=== PATIENT | male | born 1990 | race Caucasian/White ===

== ENCOUNTER 2016-06-12 21:54 | Emergency (ER) | payer OTHER ==
--- NOTE | 2016-06-12 22:26 | ED NURSING NOTES ---
Clinical Report - Nurses [facility] [address] [place] [address] 06/12/2016 21:56 Patient: AMY VASQUEZ TRIAGE Triage time 22:Jun 12 2016. Acuity: LEVEL 4. Chief Complaint: SKIN RASH. 22:03 06/12/16. SEPSIS SCREEN: Sepsis Screen. Negative (no infection suspected/documented). DIMA COMA SCORE: [place] Coma Scale: 15- eyes open spontaneously (4); best verbal response- oriented x 4 (5); best motor response- obeys commands (6). --22:10 Christal Pizano R.N. 22:03 06/12/16. BP: 124/73. HR: 74. RR: 18. O2 saturation: 100%. Temp: 98.2 F. Pain level now: 07/05. --22:10 Christal Pizano R.N. Weight: 65.7 kg stated. Height/Length: 66 inches Per Patient. BMI: 23.4. --22:02 Christal Pizano R.N. Medications None. --22:08 Christal Pizano R.N. Allergies No Known Drug Allergy. --22:09 Christal Pizano R.N. Medication/allergy information source: the patient. --22:10 Christal Pizano R.N. History Arrived by private vehicle. Historian: patient. Unaccompanied. Reported as (across top of chest and back). Onset. (2 months). It is described as itchy and painful. Treatment RECREATION FACILITY MANAGER: None. PAST MEDICAL HX: Immunizations: status is unknown. SOCIAL HX: Heavy tobacco smoker (cigarette)- 1 pack per day. History of drug use: heroin, marijuana. No infectious disease exposure. ABUSE ASSESSMENT: No report of abuse. SELF HARM ASSESSMENT: A self harm assessment was performed. The patient answered "no" to the question "Have you recently felt down, depressed, or hopeless?", "Have you noticed less interest or pleasure in doing things?", "Do you have thoughts of harming or killing yourself?", "Are you here because you tried to hurt yourself?", "Have you ever tried to hurt yourself before today?", "Have you recently had thoughts about harming or killing others?" and "Do you have any dangerous items in your possession?". NUTRITIONAL RISK ASSESSMENT: The nutritional risk assessment revealed no deficiencies. FUNCTIONAL ASSESSMENT: Functional assessment: no impairments noted. LEARNING NEEDS ASSESSMENT: The learning needs assessment revealed no barriers. SKIN INTEGRITY ASSESSMENT: Skin integrity risk assessment completed. No skin integrity risk identified. --22:10 Christal Pizano R.N. PROBLEMS: Substance Abuse. --22:09 Christal Pizano R.N. ADDITIONAL SURGERIES: no known surgeries. Interventions ID band on patient. --22:10 Christal Pizano R.N. PHYSICAL ASSESSMENT 22:11 06/12/16. GENERAL / NEURO / PSYCH: Alert. The patient does not appear to be in acute distress. HEENT: Pupils equal, round and reactive to light. RESPIRATORY: Respirations not labored. CVS: Pulses within normal limits. SKIN: Skin is warm and dry. Multiple skin lesions with erythema- upper chest and back. --22:11 Christal Pizano R.N. NURSING PROGRESS NOTES 22:11 06/12/16. Patient gowned. Patient ready for evaluation. --22:11 Christal Pizano R.N. 22:06/12/16. Two patient identifiers checked. Call light placed in reach. Side rails up x 1. Bed placed in lowest position. Brakes of bed on. --22:11 Christal Pizano R.N. DISPOSITION / DISCHARGE 22:39 06/12/16. Departure time: 2238. Condition at departure: unchanged and stable. No learning barriers present. Discharge instructions provided and reviewed with the patient. Reviewed medication(s) side effects, precautions, dosing and course information. Prescription(s) given to the patient. Work note given. Patient verbalized understanding. Written instructions provided in Greek. The patient was discharged by the physician assistant community director. He was discharged home and accompanied by sales activity manager. He left the Emergency Department ambulatory and via private vehicle. Catcher Filter Tip driving. --22:40 Jil Pradhan R.N. Locked/Released at 06/15/2016 4:05 by Christal Pizano R.N.
--- NOTE | 2016-06-12 22:26 | ED CLINICAL REPORT ---
Clinical Report - Physicians/Mid Levels [facility] [address] [place] [address] 06/12/2016 21:56 Patient: AMY VASQUEZ Time Seen: 22:38 Apr 2016. Arrived- By private vehicle. Historian- patient. HISTORY OF PRESENT ILLNESS Chief Complaint: SKIN RASH. This started just prior to arrival and is still present. It has been located on the trunk. (Patient reports a rash the chest over the last 2-3 months, history of similar. Reports has previously been in senior living. Reports possible history of MRSA. Denies any fevers. Denies pruritic nature. Has been putting benzoyl cream on it, and washings such.). REVIEW OF SYSTEMS No fever, difficulty breathing, abdominal pain or diarrhea. All systems otherwise negative, except as recorded above. PAST HISTORY Problems: Pharyngitis. Dental Abscess. Abdominal Pain. Substance Abuse. Chest Wall Pain. Anxiety Reaction. Leukocytosis. Panic Attack. Dental Pain. Dental Caries. Immunizations. Additional Surgeries: no known surgeries. Medications: None. Allergies: No Known Drug Allergy. SOCIAL HISTORY Smoker- current status unknown. History of drug use: heroin, marijuana. ADDITIONAL NOTES The nursing notes have been reviewed. PHYSICAL EXAM Vital Signs: 06/12/2016 22:03 BP: 124/73. HR: 74. RR: 18. O2 saturation: 100%. Temp: 98.2 F. Pain level now: 5/10. ENT: Ears normal. Nose normal. Neck: Neck supple. No lymphadenopathy. CVS: Normal heart rate and rhythm. Heart sounds normal. Respiratory: No respiratory distress. Breath sounds normal. Skin: No tender indurated area. No cellulitis. Rash present on the trunk. The rash is maculopapular. No lymphangitis, induration, rough texture like scarlatina, skin-line distribution like pityriasis rosea or tenderness. No swelling. PROGRESS AND PROCEDURES Course of Care: Patient with lesions over the chest and abdomen, into his neck, most consistent with folliculitis. Denies any recent amount of activity. Reports history of similar. Denies any fevers. Does not appear infectious, cellulitic in nature. Patient is stable. Patient/family counseled. Disposition: Discharged. CLINICAL IMPRESSION Superficial folliculitis INSTRUCTIONS Do not work today. Warnings: Further evaluation is necessary. Prescription Medications: Clindamycin 300 mg: take 1 capsule orally every 8 hours for 10 days. No refill. Bactroban 2% ointment: apply small amount to affected area twice daily for 1 week, until symptoms better. Dispense thirty (30) grams No refills. Substitution is permissible. Follow-up: Follow up with your doctor in four. (Electronically signed by Violet Jiang P.A.-C 06/12/2016 22:40)
--- NOTE | 2016-06-12 22:26 | ED CLINICAL REPORT ---
Clinical Report - Physicians/Mid Levels [facility] [address] [place] [address] 06/12/2016 21:56 Patient: AMY VASQUEZ Time Seen: 22:38 Apr 2016. Arrived- By private vehicle. Historian- patient. HISTORY OF PRESENT ILLNESS Chief Complaint: SKIN RASH. This started just prior to arrival and is still present. It has been located on the trunk. (Patient reports a rash the chest over the last 2-3 months, history of similar. Reports has previously been in half-way. Reports possible history of MRSA. Denies any fevers. Denies pruritic nature. Has been putting benzoyl cream on it, and washings such.). REVIEW OF SYSTEMS No fever, difficulty breathing, abdominal pain or diarrhea. All systems otherwise negative, except as recorded above. PAST HISTORY Problems: Pharyngitis. Dental Abscess. Abdominal Pain. Substance Abuse. Chest Wall Pain. Anxiety Reaction. Leukocytosis. Panic Attack. Dental Pain. Dental Caries. Immunizations. Additional Surgeries: no known surgeries. Medications: None. Allergies: No Known Drug Allergy. SOCIAL HISTORY Smoker- current status unknown. History of drug use: heroin, marijuana. ADDITIONAL NOTES The nursing notes have been reviewed. PHYSICAL EXAM Vital Signs: 06/12/2016 22:03 BP: 124/73. HR: 74. RR: 18. O2 saturation: 100%. Temp: 98.2 F. Pain level now: 5/10. ENT: Ears normal. Nose normal. Neck: Neck supple. No lymphadenopathy. CVS: Normal heart rate and rhythm. Heart sounds normal. Respiratory: No respiratory distress. Breath sounds normal. Skin: No tender indurated area. No cellulitis. Rash present on the trunk. The rash is maculopapular. No lymphangitis, induration, rough texture like scarlatina, skin-line distribution like pityriasis rosea or tenderness. No swelling. PROGRESS AND PROCEDURES Course of Care: Patient with lesions over the chest and abdomen, into his neck, most consistent with folliculitis. Denies any recent amount of activity. Reports history of similar. Denies any fevers. Does not appear infectious, cellulitic in nature. Patient is stable. Patient/family counseled. Disposition: Discharged. CLINICAL IMPRESSION Superficial folliculitis INSTRUCTIONS Do not work today. Warnings: Further evaluation is necessary. Prescription Medications: Clindamycin 300 mg: take 1 capsule orally every 8 hours for 10 days. No refill. Bactroban 2% ointment: apply small amount to affected area twice daily for 1 week, until symptoms better. Dispense thirty (30) grams No refills. Substitution is permissible. Follow-up: Follow up with your doctor in four. (Electronically signed by Violet Jiang P.A.-C 06/12/2016 22:40)
--- NOTE | 2016-06-12 22:26 | ED NURSING NOTES ---
Clinical Report - Nurses [facility] [address] [place] [address] 06/12/2016 21:56 Patient: AMY VASQUEZ TRIAGE Triage time 22:Jun 12 2016. Acuity: LEVEL 4. Chief Complaint: SKIN RASH. 22:03 06/12/16. SEPSIS SCREEN: Sepsis Screen. Negative (no infection suspected/documented). DIMA COMA SCORE: [place] Coma Scale: 15- eyes open spontaneously (4); best verbal response- oriented x 4 (5); best motor response- obeys commands (6). --22:10 Christal Pizano R.N. 22:03 06/12/16. BP: 124/73. HR: 74. RR: 18. O2 saturation: 100%. Temp: 98.2 F. Pain level now: 07/05. --22:10 Christal Pizano R.N. Weight: 65.7 kg stated. Height/Length: 66 inches Per Patient. BMI: 23.4. --22:02 Christal Pizano R.N. Medications None. --22:08 Christal Pizano R.N. Allergies No Known Drug Allergy. --22:09 Christal Pizano R.N. Medication/allergy information source: the patient. --22:10 Christal Pizano R.N. History Arrived by private vehicle. Historian: patient. Unaccompanied. Reported as (across top of chest and back). Onset. (2 months). It is described as itchy and painful. Treatment BITUMASTIC APPLIER: None. PAST MEDICAL HX: Immunizations: status is unknown. SOCIAL HX: Heavy tobacco smoker (cigarette)- 1 pack per day. History of drug use: heroin, marijuana. No infectious disease exposure. ABUSE ASSESSMENT: No report of abuse. SELF HARM ASSESSMENT: A self harm assessment was performed. The patient answered "no" to the question "Have you recently felt down, depressed, or hopeless?", "Have you noticed less interest or pleasure in doing things?", "Do you have thoughts of harming or killing yourself?", "Are you here because you tried to hurt yourself?", "Have you ever tried to hurt yourself before today?", "Have you recently had thoughts about harming or killing others?" and "Do you have any dangerous items in your possession?". NUTRITIONAL RISK ASSESSMENT: The nutritional risk assessment revealed no deficiencies. FUNCTIONAL ASSESSMENT: Functional assessment: no impairments noted. LEARNING NEEDS ASSESSMENT: The learning needs assessment revealed no barriers. SKIN INTEGRITY ASSESSMENT: Skin integrity risk assessment completed. No skin integrity risk identified. --22:10 Christal Pizano R.N. PROBLEMS: Substance Abuse. --22:09 Christal Pizano R.N. ADDITIONAL SURGERIES: no known surgeries. Interventions ID band on patient. --22:10 Christal Pizano R.N. PHYSICAL ASSESSMENT 22:11 06/12/16. GENERAL / NEURO / PSYCH: Alert. The patient does not appear to be in acute distress. HEENT: Pupils equal, round and reactive to light. RESPIRATORY: Respirations not labored. CVS: Pulses within normal limits. SKIN: Skin is warm and dry. Multiple skin lesions with erythema- upper chest and back. --22:11 Christal Pizano R.N. NURSING PROGRESS NOTES 22:11 06/12/16. Patient gowned. Patient ready for evaluation. --22:11 Christal Pizano R.N. 22:06/12/16. Two patient identifiers checked. Call light placed in reach. Side rails up x 1. Bed placed in lowest position. Brakes of bed on. --22:11 Christal Pizano R.N. DISPOSITION / DISCHARGE 22:39 06/12/16. Departure time: 2238. Condition at departure: unchanged and stable. No learning barriers present. Discharge instructions provided and reviewed with the patient. Reviewed medication(s) side effects, precautions, dosing and course information. Prescription(s) given to the patient. Work note given. Patient verbalized understanding. Written instructions provided in [place]. The patient was discharged by the physician program assistant. He was discharged home and accompanied by ios programmer. He left the Emergency Department ambulatory and via private vehicle. Gym Teacher driving. --22:40 Jil Pradhan R.N. Locked/Released at 06/15/2016 4:05 by Christal Pizano R.N.
--- NOTE | 2016-06-15 04:06 | ED MED RECONCILIATION SUMMARY ---
Patient: AMY VASQUEZ Medication Reconciliation Report [facility] VisitID: [id number] [address] [place] [address] 25y, M Registration Date/Time: 06/12/2016 Weight: 65.7 kg Height/Length: 66 in. BMI: 23.4 ALLERGIES: No Known Drug Allergy The patient's Home Medications are listed below: NONE. The source(s) of the original Home Medication information: patient The following Medications were given to the patient in the Emergency Department: None. The following Medications were prescribed to the patient: Clindamycin 300 mg: take 1 capsule orally every 8 hours for 10 days. No refill. -- Violet Jiang, P.A.-C Bactroban 2% ointment: apply small amount to affected area twice daily for 1 week, until symptoms better. Dispense thirty (30) grams No refills. Substitution is permissible. -- Violet Jiang, P.A.-C
--- NOTE | 2016-06-15 04:06 | ED DISCHARGE INSTRUCTIONS ---
Patient: AMY VASQUEZ General Instructions [facility] VisitID: [id number] [place] [address] 25y, M Registration Date/Time: 06/12/2016 Superficial folliculitis INSTRUCTIONS Do not work today. Warnings: Further evaluation is necessary. Prescription Medications: Clindamycin 300 mg: take 1 capsule orally every 8 hours for 10 days. No refill. Bactroban 2% ointment: apply small amount to affected area twice daily for 1 week, until symptoms better. Dispense thirty (30) grams No refills. Substitution is permissible. Follow-up: Follow up with your doctor in four. ADDITIONAL INFORMATION Folliculitis Folliculitis is an inflammation of the hair follicles (where the hair comes out of the skin). It is most often caused by infection with bacteria such as staph. Folliculitis usually looks like small white pimples in hairy areas of the skin. Severe cases may cause permanent hair loss and scarring. The condition is most often triggered by friction against the skin due to tight-fitting clothing. Ingrown hairs on the face of men are another cause. One type of folliculitis occurs after soaking in a hot tub when the water is contaminated with bacteria. Simple folliculitis usually clears by itself in a few days. Folliculitis that does not go away or comes back may need medical treatment. Oral and topical antibioticsmay beused. Home care The following will help you care for folliculitis at home: Wash the area with soap and water when you bathe, as usual. Unless another medicine was prescribed, you can apply a topical antibiotic cream twice a day. Follow-up care Follow up with your doctor as advised by our staff. When to seek medical care Get prompt medical attention if any of the following occur: Rash lasts longer than three days Rash changes appearance or spreads Abscess (boil) forms with local swelling, tenderness, or fluid drainage Fever of 100.4F (38C) or higher, or as directed by your health care provider Clindamycin Hydrochloride Oral capsule What is this medicine? CLINDAMYCIN (KLIN da MYE sin) is a lincosamide antibiotic. It is used to treat certain kinds of bacterial infections. It will not work for colds, flu, or other viral infections. How should I use this medicine? Take this medicine by mouth with a full glass of water. Follow the directions on the prescription label. You can take this medicine with food or on an empty stomach. If the medicine upsets your stomach, take it with food. Take your medicine at regular intervals. Do not take your medicine more often than directed. Take all of your medicine as directed even if you think your are better. Do not skip doses or stop your medicine early. Talk to your manager rental regarding the use of this medicine in children. Special care may be needed. What side effects may I notice from receiving this medicine? Side effects that you should report to your doctor or health career consultant as soon as possible: allergic reactions like skin rash, itching or hives, swelling of the face, lips, or tongue dark urine pain on swallowing redness, blistering, peeling or loosening of the skin, including inside the mouth unusual bleeding or bruising unusually weak or tired yellowing of eyes or skin Side effects that usually do not require medical attention (report to your doctor or health career consultant if they continue or are bothersome): diarrhea itching in the rectal or genital area joint pain nausea, vomiting stomach pain What may interact with this medicine? chloramphenicol erythromycin kaolin products What if I miss a dose? If you miss a dose, take it as soon as you can. If it is almost time for your next dose, take only that dose. Do not take double or extra doses. Where should I keep my medicine? Keep out of the reach of children. Store at room temperature between 20 and 25 degrees C (68 and 77 degrees F). Throw away any unused medicine after the expiration date. What should I tell my health care provider before I take this medicine? They need to know if you have any of these conditions: kidney disease liver disease stomach problems like colitis an unusual or allergic reaction to clindamycin, lincomycin, or other medicines, foods, dyes like tartrazine or preservatives or trying to get breast-feeding What should I watch for while using this medicine? Tell your doctor or healthcare professional if your symptoms do not start to get better or if they get worse. Do not treat diarrhea with over the counter products. Contact your doctor if you have diarrhea that lasts more than 2 days or if it is severe and watery. Mupirocin Topical ointment What is this medicine? MUPIROCIN (myoo PEER oh sin) is an antibiotic. It is used on the skin to treat skin infections. How should I use this medicine? This medicine is for external use only. Follow the directions on the prescription label. Wash your hands before and after use. Before applying, wash the affected area with mild soap and water and pat dry. Apply a small amount to the affected area and rub gently. You can cover the area with a gauze dressing. Do not get this medicine in your eyes. If you do, rinse out with plenty of cool tap water. Do not use your medicine more often than directed. Finish the full course of medicine prescribed by your doctor or health career consultant even if you think your condition is better. Do not use over large areas of burnt skin. Talk to your manager rental regarding the use of this medicine in children. Special care may be needed. What side effects may I notice from receiving this medicine? Side effects that you should report to your doctor or health career consultant as soon as possible: skin rash, redness, continued swelling, burning, itching, stinging, or pain Side effects that usually do not require medical attention (report to your doctor or health career consultant if they continue or are bothersome): dry skin, itching What may interact with this medicine? Interactions are not expected. Do not use any other skin products on the affected area without telling your doctor or health career consultant. What if I miss a dose? If you miss a dose, take it as soon as you can. If it is almost time for your next dose, take only that dose. Do not take double or extra doses. Where should I keep my medicine? Keep out of the reach of children. Store at room temperature between 20 and 25 degrees C (68 and 77 degrees F). Throw away any unused medicine after the expiration date. What should I tell my health care provider before I take this medicine? They need to know if you have any of these conditions: an unusual or allergic reaction to mupirocin, polyethylene glycol (PEG), or other topical antibiotic medicine or trying to get breast-feeding What should I watch for while using this medicine? Tell your doctor or health career consultant if your skin condition does not begin to improve within 3 to 5 days. You have been given the following additional information: Folliculitis Clindamycin Hydrochloride Oral capsule Mupirocin Topical ointment Do not work today. (Electronically signed by Violet Jiang P.A.-C 06/12/2016 22:40)
--- NOTE | 2016-06-15 04:06 | ED MED RECONCILIATION SUMMARY ---
Patient: AMY VASQUEZ Medication Reconciliation Report [facility] VisitID: [id number] [address] [place] [address] 25y, M Registration Date/Time: 06/12/2016 Weight: 65.7 kg Height/Length: 66 in. BMI: 23.4 ALLERGIES: No Known Drug Allergy The patient's Home Medications are listed below: NONE. The source(s) of the original Home Medication information: patient The following Medications were given to the patient in the Emergency Department: None. The following Medications were prescribed to the patient: Clindamycin 300 mg: take 1 capsule orally every 8 hours for 10 days. No refill. -- Violet Jiang, P.A.-C Bactroban 2% ointment: apply small amount to affected area twice daily for 1 week, until symptoms better. Dispense thirty (30) grams No refills. Substitution is permissible. -- Violet Jiang, P.A.-C
--- NOTE | 2016-06-15 04:06 | ED DISCHARGE INSTRUCTIONS ---
Patient: AMY VASQUEZ General Instructions [facility] VisitID: [id number] [place] [address] 25y, M Registration Date/Time: 06/12/2016 Superficial folliculitis INSTRUCTIONS Do not work today. Warnings: Further evaluation is necessary. Prescription Medications: Clindamycin 300 mg: take 1 capsule orally every 8 hours for 10 days. No refill. Bactroban 2% ointment: apply small amount to affected area twice daily for 1 week, until symptoms better. Dispense thirty (30) grams No refills. Substitution is permissible. Follow-up: Follow up with your doctor in four. ADDITIONAL INFORMATION Folliculitis Folliculitis is an inflammation of the hair follicles (where the hair comes out of the skin). It is most often caused by infection with bacteria such as staph. Folliculitis usually looks like small white pimples in hairy areas of the skin. Severe cases may cause permanent hair loss and scarring. The condition is most often triggered by friction against the skin due to tight-fitting clothing. Ingrown hairs on the face of men are another cause. One type of folliculitis occurs after soaking in a hot tub when the water is contaminated with bacteria. Simple folliculitis usually clears by itself in a few days. Folliculitis that does not go away or comes back may need medical treatment. Oral and topical antibioticsmay beused. Home care The following will help you care for folliculitis at home: Wash the area with soap and water when you bathe, as usual. Unless another medicine was prescribed, you can apply a topical antibiotic cream twice a day. Follow-up care Follow up with your doctor as advised by our staff. When to seek medical care Get prompt medical attention if any of the following occur: Rash lasts longer than three days Rash changes appearance or spreads Abscess (boil) forms with local swelling, tenderness, or fluid drainage Fever of 100.4F (38C) or higher, or as directed by your health care provider Clindamycin Hydrochloride Oral capsule What is this medicine? CLINDAMYCIN (KLIN da MYE sin) is a lincosamide antibiotic. It is used to treat certain kinds of bacterial infections. It will not work for colds, flu, or other viral infections. How should I use this medicine? Take this medicine by mouth with a full glass of water. Follow the directions on the prescription label. You can take this medicine with food or on an empty stomach. If the medicine upsets your stomach, take it with food. Take your medicine at regular intervals. Do not take your medicine more often than directed. Take all of your medicine as directed even if you think your are better. Do not skip doses or stop your medicine early. Talk to your admin assistant regarding the use of this medicine in children. Special care may be needed. What side effects may I notice from receiving this medicine? Side effects that you should report to your doctor or health interior plant caretaker as soon as possible: allergic reactions like skin rash, itching or hives, swelling of the face, lips, or tongue dark urine pain on swallowing redness, blistering, peeling or loosening of the skin, including inside the mouth unusual bleeding or bruising unusually weak or tired yellowing of eyes or skin Side effects that usually do not require medical attention (report to your doctor or health interior plant caretaker if they continue or are bothersome): diarrhea itching in the rectal or genital area joint pain nausea, vomiting stomach pain What may interact with this medicine? chloramphenicol erythromycin kaolin products What if I miss a dose? If you miss a dose, take it as soon as you can. If it is almost time for your next dose, take only that dose. Do not take double or extra doses. Where should I keep my medicine? Keep out of the reach of children. Store at room temperature between 20 and 25 degrees C (68 and 77 degrees F). Throw away any unused medicine after the expiration date. What should I tell my health care provider before I take this medicine? They need to know if you have any of these conditions: kidney disease liver disease stomach problems like colitis an unusual or allergic reaction to clindamycin, lincomycin, or other medicines, foods, dyes like tartrazine or preservatives or trying to get breast-feeding What should I watch for while using this medicine? Tell your doctor or healthcare professional if your symptoms do not start to get better or if they get worse. Do not treat diarrhea with over the counter products. Contact your doctor if you have diarrhea that lasts more than 2 days or if it is severe and watery. Mupirocin Topical ointment What is this medicine? MUPIROCIN (myoo PEER oh sin) is an antibiotic. It is used on the skin to treat skin infections. How should I use this medicine? This medicine is for external use only. Follow the directions on the prescription label. Wash your hands before and after use. Before applying, wash the affected area with mild soap and water and pat dry. Apply a small amount to the affected area and rub gently. You can cover the area with a gauze dressing. Do not get this medicine in your eyes. If you do, rinse out with plenty of cool tap water. Do not use your medicine more often than directed. Finish the full course of medicine prescribed by your doctor or health interior plant caretaker even if you think your condition is better. Do not use over large areas of burnt skin. Talk to your admin assistant regarding the use of this medicine in children. Special care may be needed. What side effects may I notice from receiving this medicine? Side effects that you should report to your doctor or health interior plant caretaker as soon as possible: skin rash, redness, continued swelling, burning, itching, stinging, or pain Side effects that usually do not require medical attention (report to your doctor or health interior plant caretaker if they continue or are bothersome): dry skin, itching What may interact with this medicine? Interactions are not expected. Do not use any other skin products on the affected area without telling your doctor or health interior plant caretaker. What if I miss a dose? If you miss a dose, take it as soon as you can. If it is almost time for your next dose, take only that dose. Do not take double or extra doses. Where should I keep my medicine? Keep out of the reach of children. Store at room temperature between 20 and 25 degrees C (68 and 77 degrees F). Throw away any unused medicine after the expiration date. What should I tell my health care provider before I take this medicine? They need to know if you have any of these conditions: an unusual or allergic reaction to mupirocin, polyethylene glycol (PEG), or other topical antibiotic medicine or trying to get breast-feeding What should I watch for while using this medicine? Tell your doctor or health interior plant caretaker if your skin condition does not begin to improve within 3 to 5 days. You have been given the following additional information: Folliculitis Clindamycin Hydrochloride Oral capsule Mupirocin Topical ointment Do not work today. (Electronically signed by Violet Jiang P.A.-C 06/12/2016 22:40)
--- NOTE | 2016-06-15 04:06 | ED MAR SUMMARY ---
..... Medication Administration Record [facility] [address] [place], [place] [id number] Patient: AMY VASQUZE Visit ID: [id number] 25y, M Weight: 65.7 kg Height/Length: 66 in BMI: 23.4 ALLERGIES: No Known Drug Allergy
--- NOTE | 2016-06-15 04:06 | ED MAR SUMMARY ---
..... Medication Administration Record [facility] [address] [place], [place] [id number] Patient: AMY VASQUEZ Visit ID: [id number] 25y, M Weight: 65.7 kg Height/Length: 66 in BMI: 23.4 ALLERGIES: No Known Drug Allergy
== END 2016-06-12 22:39 | disposition home or self-care (01) ==
LOC: ED SRH 21:54
DX: L73.9 Follicular disorder, unspecified (principal); F17.210 Nicotine dependence, cigarettes, uncomplicated